=== PATIENT | female | born 1995 | race African-American/Black ===

== ENCOUNTER 2017-03-18 11:43 | Emergency (ER) | payer OTHER ==
[2017-03-18] MEDS ORDERED: NS 1,000 ML IV ONE (12:24)
--- NOTE | 2017-03-18 12:27 | EDPHY ---
H & P Stated Complaint: epigastric pain through to back 20 wks Time Seen by Provider: 03/18/17 12:00 HPI/ROS: CHIEF COMPLAINT: Epigastric pain HISTORY OF PRESENT ILLNESS: Patient is a 21-year-old female who comes to the emergency department complaining of epigastric and right upper quadrant pain that radiates to her back. She has had the symptoms all morning. She vomited once nonbloody. No diarrhea. She states that she has frequent abdominal pain but never this bad. She does not associated with food. 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 She also states that when she was 17 results she was admitted for a bowel obstruction that was fixed with an NG tube. She has had a normal bowel movements today yesterday. REVIEW OF SYSTEMS: Constitutional: denies: chills, fever, recent illness, recent injury EENTM: denies: blurred vision, double vision, nose congestion Respiratory: denies: cough, shortness of breath Cardiac: denies: chest pain, irregular heart rate, lightheadedness, palpitations Gastrointestinal/Abdominal: See HPI Genitourinary: denies: dysuria, frequency, hematuria, pain Musculoskeletal: denies: joint pain, muscle pain Skin: denies: lesions, rash, jaundice, bruising Neurological: denies: headache, numbness, paresthesia, tingling, dizziness, weakness Hematologic/Lymphatic: denies: blood clots, easy bleeding, easy bruising Immunologic/allergic: denies: HIV/AIDS, transplant EXAM: GENERAL: Well-appearing, well-nourished and in no acute distress. HEAD: Atraumatic, normocephalic. EYES: Pupils equal round and reactive to light, extraocular movements intact, sclera anicteric, conjunctiva are normal. ENT: TMs normal, nares patent, oropharynx clear without exudates. Moist mucous membranes. NECK: Normal range of motion, supple without lymphadenopathy or JVD. LUNGS: Breath sounds clear to auscultation bilaterally and equal. No wheezes rales or rhonchi. HEART: Regular rate and rhythm without murmurs, rubs or gallops. ABDOMEN: Right upper quadrant tenderness, BACK: No CVA tenderness, no spinal tenderness, step-offs or deformities EXTREMITIES: Normal range of motion, no pitting or edema. No clubbing or cyanosis. NEUROLOGICAL: Cranial nerves II through XII grossly intact. Normal speech, normal gait. 5/5 strength, normal movement in all extremities, normal sensation PSYCH: Normal mood, normal affect. SKIN: Warm, dry, normal turgor, no visible rashes or lesions. Source: Patient Exam Limitations: No limitations - Personal History LMP (Females 10-55): Current Tetanus/Diphtheria Vaccine: Yes - Medical/Surgical History Hx Asthma: No Hx Chronic Respiratory Disease: No Hx Diabetes: No Hx Cardiac Disease: No Hx Renal Disease: No Hx Cirrhosis: No Hx Alcoholism: No Hx HIV/AIDS: No Hx Splenectomy or Spleen Trauma: No Other PMH: denies - Family History Significant Family History: No pertinent family hx - Social History Smoking Status: Never smoked Alcohol Use: Sober Drug Use: None Constitutional: Initial Vital Signs Temperature (C) 36.6 C 03/18/17 11:47 Heart Rate 82 03/18/17 11:47 Respiratory Rate 16 03/18/17 11:47 Blood Pressure 126/68 H 03/18/17 11:47 O2 Sat (%) 99 03/18/17 11:47 O2 Delivery Mode Room Air Allergies/Adverse Reactions: No Known Allergies Allergy (Unverified 03/18/17 11:47) Home Medications: Medication Instructions Recorded Famotidine [Pepcid 20 MG (OTC)] 20 mg PO BID #30 tab 03/18/17 Vits W-Ca,Fe,FA(<1Mg) 03/18/17 Medical Decision Making - Diagnostics EKG Interpretation: An EKG obtained and was read and documented in trace view. Please see trace view for full reading and report. Sinus rhythm, no acute ischemic changes or signs of right heart strain Imaging: Discussed imaging studies w/ machine scallop cutter Radiologist ED Course/Re-evaluation: Patient's right upper quadrant ultrasound is reassuring. Patient heart rate is 150 and everything appears normal on bedside ultrasound done with agricultural adviser. The patient in dorsal is frequent heartburn. I will start her on an acids. She does not have any significant signs of PE. Heart rate is 80. Oxygen saturation is 100% on room air. No leg pain or swelling, no pop this is, no recent surgery or history of clotting disorder. No pleuritic chest pain. No chest pain at all. Will obtain an EKG to evaluate further. 12:12 p.m. the patient's urinalysis is reassuring. I will start her on GI cocktail and acids and have her follow up with her primary within 2 days. Discussed indications for returning to the emergency department. Differential Diagnosis: Partial list of the Differential diagnosis considered include but were not limited to; gallbladder disease, peptic ulcer disease, GERD and although unlikely based on the history and physical exam, I also considered PE, acute coronary disease, pneumonia, pneumothorax. I discussed these differential diagnoses and the plan with the patient as well as the usual and expected course. The patient understands that the diagnosis is provisional and that in medicine we are not always correct and that further workup is often warranted. Usual and customary warnings were given. All of the patient's questions were answered. The patient was instructed to return to the emergency department should the symptoms at all worsen or return, otherwise to followup with the physician as we discussed. - Data Points Laboratory Results: Laboratory Results 03/18/17 12:20 03/18/17 12:20 Microbiology Results: MICROBIOLOGY 03/18/17 15:20 Urine,Clean Catch Urine Culture - Preliminary Medications Given: Discontinued Medications Al Hydroxide/Mg Hydroxide (Maalox Susp) 30 ml PO ONCE ONE Stop: 03/18/17 14:00 Last Admin: 03/18/17 14:42 Dose: 30 ml Hyoscyamine Sulfate (Levsin, Hyomax-Sl) 0.25 mg PO ONCE ONE Stop: 03/18/17 14:00 Last Admin: 03/18/17 14:42 Dose: 0.25 mg Sodium Chloride (Ns) 1,000 mls @ 0 mls/hr IV ONCE ONE PRN Reason: Wide Open Stop: 03/18/17 12:25 Last Admin: 03/18/17 12:25 Dose: 1,000 mls Lidocaine (Lidocaine 2% Viscous) 15 ml PO ONCE ONE Stop: 03/18/17 14:00 Last Admin: 03/18/17 14:42 Dose: 15 ml Departure - Departure Disposition: Home, Routine, Self-Care Clinical Impression: Epigastric abdominal pain Qualifiers: Weeks of gestation: 20 weeks Qualified Code(s): Z3A.20 - 20 weeks gestation of Condition: Fair Instructions: Epigastric Pain (ED) Referrals: UNK,UNK [Other] - As per Instructions Sandy Sandoval MD [Medical Doctor] - As per Instructions Prescriptions: Famotidine [Pepcid 20 MG (OTC)] 20 mg PO BID #30 tab
[2017-03-18 12:41] LABS: % IMMATURE GRANULYOCYTES 0.4 % (0.0-1.1); ABSOLUTE IMMATURE GRANULOCYTES 0.04 10^3/uL (0.00-0.10); ADD DIFF? NO; ADD MORPH? NO; ADD SCAN? NO; ATYPICAL LYMPHOCYTE FLAG 0 (0-99); FRAGMENT RBC FLAG 0 (0-99); HEMATOCRIT 33.7 % (38.0-47.0); HEMOGLOBIN 11.6 g/dL (12.6-16.3); LEFT SHIFT FLG 10 (0-99); LIPEMIA HEMOLYSIS FLAG 90 (0-99); MEAN CELL HEMOGLOBIN 28.1 pg (27.9-34.1); MEAN CELL HEMOGLOBIN CONCENTR. 34.4 g/dL (32.4-36.7); MEAN CELL VOLUME 81.6 fL (81.5-99.8); MEAN PLATELET VOLUME 10.1 fL (8.7-11.7); PLATELET CLUMPS FLAG 0 (0-99); PLATELET COUNT 272 10^3/uL (150-400); RED BLOOD CELL COUNT 4.13 10^6/uL (4.18-5.33); RED CELL DISTRIBUTION WIDTH 13.4 % (11.5-15.2)
[2017-03-18 12:49] LABS: ALANINE AMINOTRANSFERASE 35 IU/L (9-52); ALBUMIN 3.8 g/dL (3.5-5.0); ALKALINE PHOSPHATASE 48 IU/L (38-126); ANION GAP 10 mEq/L (8-16); ASPARTATE AMINOTRANSFERASE 35 IU/L (14-46); BILIRUBIN,TOTAL 0.6 mg/dL (0.1-1.4); BILIRUBIN-CONJUGATED 0.4 mg/dL (0.0-0.5); BILIRUBIN-UNCONJUGATED 0.2 mg/dL (0.0-1.1); CALCIUM 9.3 mg/dL (8.5-10.4); CARBON DIOXIDE 23 mEq/l (22-31); CHLORIDE 105 mEq/L (97-110); CREATININE 0.6 mg/dL (0.6-1.0); GLOMERULAR FILTRATION RATE > 60; GLUCOSE 81 mg/dL (70-100); POTASSIUM 3.9 mEq/L (3.5-5.2); SODIUM 138 mEq/L (134-144); TOTAL PROTEIN 6.9 g/dL (6.3-8.2)
[2017-03-18] MEDS ORDERED: HYOSCYAMINE SULFATE 0.125 MG TAB PO ONE (13:59)
[2017-03-18] MEDS ORDERED: MAG HYDROX/AL HYDROX/SIMETH 30 ML UDCUP PO ONE (13:59)
[2017-03-18] MEDS ORDERED: LIDOCAINE 2% VISCOUS 15 ML UDCUP PO ONE (13:59)
--- NOTE | 2017-03-18 14:10 | CPEKG ---
Heart Rate: 72 RR Interval: 833 P-R Interval: 160 QRSD Interval: 72 QT Interval: 380 QTC Interval: 416 P [place]: 55 QRS [place]: 40 T Wave [place]: 22 EKG Severity - OTHERWISE NORMAL ECG - EKG Impression: SINUS ARRHYTHMIA, RATE 63-89 Electronically Signed By: Kei Newton 18-Mar-2017 14:13:01
[2017-03-18 15:09] VITALS: BP 129/85; PULSE 74; RESP 18; TEMP 98.4; O2SAT 96
[2017-03-18 15:20] LABS: COLOR YELLOW; LEUKOCYTE ESTERASE,URINE TRACE (NEGATIVE); NITRITE,URINE NEGATIVE (NEGATIVE)
[2017-03-18 15:23] LABS: BACTERIA TRACE /hpf (NONE SEEN); MUCUS 3+ /lpf (NONE-1+)
== END 2017-03-18 15:07 | disposition home or self-care (01) ==
DX: O26.892 Other specified pregnancy related conditions, second trimester (principal); R10.13 Epigastric pain; Z3A.20 20 weeks gestation of pregnancy

== ENCOUNTER 2017-04-14 14:29 | Emergency (ER) | payer OTHER ==
[2017-04-14 14:51] VITALS: RESP 14
[2017-04-14] MEDS ORDERED: NS 1,000 ML IV ONE (15:08)
--- NOTE | 2017-04-14 15:14 | EDPHY ---
H & P Time Seen by Provider: 04/14/17 15:12 HPI/ROS: Chief complaint. Possible seizure HPI. 21-year-old female who is here by EMS after having possible seizure. She is 25 weeks . No care. 1 para 0. She tells me that this afternoon she had some low abdominal discomfort that she felt was pressure or weight. She got nauseated and went to the bathroom to vomit. She then awoke on the floor. A friend (who is not here) said that the patient was shaking. Patient is not hurt. She did not bite her tongue. She has no previous seizure history. She was incontinent of urine ROS Constitutional. no fever/chills, no weakness Eyes. no problems with vision ENT. no sore throat, no nasal drainage Cardiovascular. no chest pain Respiratory. no shortness of breath, no cough Abdominal. Some low abdominal discomfort and vomiting x1 . no problems urinating MS. no calf pain/swelling, no neck/back pain, no joint pain Skin. no rash Lymph. no swollen glands Neuro. Syncope or seizure Past Medical/Surgical History: Healthy Social History: Single, nonsmoker, no alcohol Smoking Status: Never smoked Physical Exam: General Appearance: Alert well-developed female mild distress vital signs are stable. Eyes: Pupils equal and round no pallor or injection. ENT, Mouth: Mucous membranes are moist. Respiratory: There are no retractions, lungs are clear to auscultation. Cardiovascular: Regular rate and rhythm. Gastrointestinal: Abdomen is soft and nontender, gravid abdomen appropriate for 25 weeks gestational Neurological: Awake and alert, sensory and motor exams grossly normal. Skin: Warm and dry, no rashes. Musculoskeletal: Neck is supple nontender. Extremities symmetrical, full range of motion. Psychiatric: Patient is oriented X 3, there is no agitation. Constitutional: Initial Vital Signs Temperature (C) 37.1 C 04/14/17 14:30 Heart Rate 66 04/14/17 14:30 Respiratory Rate 14 04/14/17 14:30 Blood Pressure 134/88 H 04/14/17 14:30 O2 Sat (%) 100 04/14/17 14:30 O2 Delivery Mode Room Air Allergies/Adverse Reactions: No Known Allergies Allergy (Unverified 03/18/17 11:47) Home Medications: Medication Instructions Recorded Famotidine [Pepcid 20 MG (OTC)] 20 mg PO BID #30 tab 03/18/17 Vits W-Ca,Fe,FA(<1Mg) 03/18/17 Medical Decision Making - Diagnostics Imaging Results: Imaging Impressions Head CT 04/14/17 15:27 Impression: No acute intracranial findings. If symptoms persist and clinical suspicion warrants, consider MRI. Findings discussed with Taisha Orozco 04/14/2017 at 18:25. Obstetrics Ultrasound 04/14/17 15:27 Impression: 1. Living single breech intrauterine with size concordant with dates. No acute findings. 2. Slightly limited anatomic survey as above with a left ventricular echogenic intracardiac focus, which is most likely a prominent papillary muscle of doubtful clinical significance, although, there is a weak association with Down syndrome. Consultation with high-risk OB could be performed. 3. Additional findings as above. Findings discussed with TAISHA OROZCO 04/14/2017 at 17:52. Ultrasound of the abdomen shows no acute findings Noncontrast head CT is normal per Dr. Huddleston. Reviewed by me Procedures: IV normal saline. Monitor, seizure precautions heart tone 155 ED Course/Re-evaluation: Serial evaluations patient remains alert conversational without any further seizure activity. Again no one is here who witnessed the episode I consulted and discussed the case with Dr. Ledezma OBGYN who recommended further lab work I consulted and discussed the case with Dr. Mejia, neurology who will follow up with the patient Differential Diagnosis: I think likely the patient had vasovagal episode. She is . She had low abdominal discomfort. There is no obvious evidence of seizures such as tongue biting or trauma. She has no seizure history. She does require follow up with OBGYN and I have discussed this with OBGYN who will follow her in the office - Data Points Laboratory Results: Laboratory Results 04/14/17 14:34 04/14/17 14:34 04/14/17 04/14/17 04/14/17 Unknown Unknown Unknown WBC RBC Hgb Hct MCV MCH MCHC RDW Plt Count MPV Neut % (Auto) Lymph % (Auto) Dent % (Auto) Eos % (Auto) Baso % (Auto) Nucleat RBC Rel Count Absolute Neuts (auto) Absolute Lymphs (auto) Absolute Monos (auto) Absolute Eos (auto) Absolute Basos (auto) Absolute Nucleated RBC Immature Gran % Immature Gran # Sodium Potassium Chloride Carbon Dioxide Anion Gap BUN Creatinine Estimated GFR Glucose Uric Acid 4.2 mg/dL mg/dL (2.5-6.8) Calcium Total Bilirubin 1.0 mg/dL mg/dL (0.1-1.4) Conjugated Bilirubin 0.5 mg/dL mg/dL (0.0-0.5) Unconjugated Bilirubin 0.5 mg/dL mg/dL (0.0-1.1) AST 24 IU/L IU/L (14-46) ALT 18 IU/L IU/L (9-52) Alkaline Phosphatase 68 IU/L IU/L (38-126) Total Protein 7.6 g/dL g/dL (6.3-8.2) Albumin 4.3 g/dL g/dL (3.5-5.0) Urine Color Urine Appearance Urine pH Ur Specific Hulbert Urine Protein Urine Ketones Urine Blood Urine Nitrate Urine Bilirubin Urine Urobilinogen Ur Leukocyte Esterase Urine RBC Urine WBC Ur Epithelial Cells Urine Mucus Urine Glucose RPR Pending Hep Bs Antigen HIV 1&2 Antigen & Ab Pending Rubella IgG Antibody Patient ABO/Rh Antibody Screen 04/14/17 04/14/17 04/14/17 Unknown 18:25 16:50 WBC RBC Hgb Hct MCV MCH MCHC RDW Plt Count MPV Neut % (Auto) Lymph % (Auto) Dent % (Auto) Eos % (Auto) Baso % (Auto) Nucleat RBC Rel Count Absolute Neuts (auto) Absolute Lymphs (auto) Absolute Monos (auto) Absolute Eos (auto) Absolute Basos (auto) Absolute Nucleated RBC Immature Gran % Immature Gran # Sodium Potassium Chloride Carbon Dioxide Anion Gap BUN Creatinine Estimated GFR Glucose Uric Acid Calcium Total Bilirubin Conjugated Bilirubin Unconjugated Bilirubin AST ALT Alkaline Phosphatase Total Protein Albumin Urine Color YELLOW Urine Appearance CLEAR Urine pH 7.0 (5.0-7.5) Ur Specific Hulbert 1.012 (1.002-1.030) Urine Protein NEGATIVE (NEGATIVE) Urine Ketones 2+ H (NEGATIVE) Urine Blood NEGATIVE (NEGATIVE) Urine Nitrate NEGATIVE (NEGATIVE) Urine Bilirubin NEGATIVE (NEGATIVE) Urine Urobilinogen NEGATIVE EU EU (0.2-1.0) Ur Leukocyte Esterase TRACE H (NEGATIVE) Urine RBC NONE SEEN /hpf /hpf (0-3) Urine WBC 3-5 /hpf H /hpf (0-3) Ur Epithelial Cells TRACE /lpf /lpf (NONE-1+) Urine Mucus TRACE /lpf /lpf (NONE-1+) Urine Glucose NEGATIVE (NEGATIVE) RPR Hep Bs Antigen NEGATIVE (NEGATIVE) HIV 1&2 Antigen & Ab Rubella IgG Antibody 139.00 IU/mL IU/mL Patient ABO/Rh AB POSITIVE Antibody Screen NEGATIVE 04/14/17 04/14/17 14:34 14:34 WBC 10.98 10^3/uL H 10^3/uL (3.80-9.50) RBC 4.49 10^6/uL 10^6/uL (4.18-5.33) Hgb 12.4 g/dL L g/dL (12.6-16.3) Hct 36.8 % L % (38.0-47.0) MCV 82.0 fL fL (81.5-99.8) MCH 27.6 pg L pg (27.9-34.1) MCHC 33.7 g/dL g/dL (32.4-36.7) RDW 13.0 % % (11.5-15.2) Plt Count 269 10^3/uL 10^3/uL (150-400) MPV 10.5 fL fL (8.7-11.7) Neut % (Auto) 77.3 % H % (39.3-74.2) Lymph % (Auto) 14.3 % L % (15.0-45.0) Dent % (Auto) 7.1 % % (4.5-13.0) Eos % (Auto) 0.5 % L % (0.6-7.6) Baso % (Auto) 0.3 % % (0.3-1.7) Nucleat RBC Rel Count 0.0 % % (0.0-0.2) Absolute Neuts (auto) 8.48 10^3/uL H 10^3/uL (1.70-6.50) Absolute Lymphs (auto) 1.57 10^3/uL 10^3/uL (1.00-3.00) Absolute Monos (auto) 0.78 10^3/uL 10^3/uL (0.30-0.80) Absolute Eos (auto) 0.06 10^3/uL 10^3/uL (0.03-0.40) Absolute Basos (auto) 0.03 10^3/uL 10^3/uL (0.02-0.10) Absolute Nucleated RBC 0.00 10^3/uL 10^3/uL (0-0.01) Immature Gran % 0.5 % % (0.0-1.1) Immature Gran # 0.06 10^3/uL 10^3/uL (0.00-0.10) Sodium 136 mEq/L mEq/L (134-144) Potassium 4.0 mEq/L mEq/L (3.5-5.2) Chloride 103 mEq/L mEq/L (97-110) Carbon Dioxide 20 mEq/l L mEq/l (22-31) Anion Gap 13 mEq/L mEq/L (8-16) BUN 7 mg/dL mg/dL (7-23) Creatinine 0.6 mg/dL mg/dL (0.6-1.0) Estimated GFR > 60 Glucose 66 mg/dL L mg/dL (70-100) Uric Acid Calcium 9.6 mg/dL mg/dL (8.5-10.4) Total Bilirubin Conjugated Bilirubin Unconjugated Bilirubin AST ALT Alkaline Phosphatase Total Protein Albumin Urine Color Urine Appearance Urine pH Ur Specific H[place]bert Urine Protein Urine Ketones Urine Blood Urine Nitrate Urine Bilirubin Urine Urobilinogen Ur Leukocyte Esterase Urine RBC Urine WBC Ur Epithelial Cells Urine Mucus Urine Glucose RPR Hep Bs Antigen HIV 1&2 Antigen & Ab Rubella IgG Antibody Patient ABO/Rh Antibody Screen Medications Given: Discontinued Medications Sodium Chloride (Ns) 1,000 mls @ 0 mls/hr IV ONCE ONE PRN Reason: Wide Open Stop: 04/14/17 15:09 Last Admin: 04/14/17 15:14 Dose: 1,000 mls Ondansetron HCl (Zofran) 4 mg IVP EDNOW ONE Stop: 04/14/17 16:09 Last Admin: 04/14/17 16:09 Dose: 4 mg Departure - Departure Disposition: Home, Routine, Self-Care Clinical Impression: Vasovagal episode, Second trimester Condition: Good Instructions: Syncope (ED) Additional Instructions: Drink plenty of fluids and stay hydrated. Regular meals. Caution with standing up too fast. Return for another passing out episode or seizure. I will give you the name of both senior training and development rep and Neurology for follow-up. Please call them tomorrow and make follow-up appointments Referrals: NONE *PRIMARY CARE P,. [Primary Care Provider] - As per Instructions Erika Ledezma MD [Medical Doctor] - 5-7 days, call for appt. Scar Mejia MD [Medical Doctor] - 5-7 days, call for appt.
[2017-04-14 15:39] LABS: ANION GAP 13 mEq/L (8-16); CALCIUM 9.6 mg/dL (8.5-10.4); CARBON DIOXIDE 20 mEq/l (22-31); CHLORIDE 103 mEq/L (97-110); CREATININE 0.6 mg/dL (0.6-1.0); GLOMERULAR FILTRATION RATE > 60; GLUCOSE 66 mg/dL (70-100); SODIUM 136 mEq/L (134-144)
[2017-04-14 15:40] LABS: % IMMATURE GRANULYOCYTES 0.5 % (0.0-1.1); ABSOLUTE IMMATURE GRANULOCYTES 0.06 10^3/uL (0.00-0.10); ADD DIFF? NO; ADD MORPH? NO; ADD SCAN? NO; ATYPICAL LYMPHOCYTE FLAG 10 (0-99); FRAGMENT RBC FLAG 30 (0-99); HEMATOCRIT 36.8 % (38.0-47.0); HEMOGLOBIN 12.4 g/dL (12.6-16.3); LEFT SHIFT FLG 10 (0-99); LIPEMIA HEMOLYSIS FLAG 80 (0-99); MEAN CELL HEMOGLOBIN 27.6 pg (27.9-34.1); MEAN CELL HEMOGLOBIN CONCENTR. 33.7 g/dL (32.4-36.7); MEAN PLATELET VOLUME 10.5 fL (8.7-11.7); PLATELET CLUMPS FLAG 0 (0-99); PLATELET COUNT 269 10^3/uL (150-400); RED BLOOD CELL COUNT 4.49 10^6/uL (4.18-5.33)
[2017-04-14] MEDS ORDERED: ONDANSETRON 4 MG/2 ML VIAL ONE (15:59)
[2017-04-14] MEDS ORDERED: ONDANSETRON 4 MG/2 ML VIAL IVP ONE (16:08)
[2017-04-14 17:11] LABS: COLOR YELLOW; LEUKOCYTE ESTERASE,URINE TRACE (NEGATIVE); NITRITE,URINE NEGATIVE (NEGATIVE)
[2017-04-14 17:16] LABS: MUCUS TRACE /lpf (NONE-1+)
[2017-04-14 17:18] LABS: RBC,URINE NONE SEEN /hpf (0-3)
--- NOTE | 2017-04-14 17:23 | CPEKG ---
Heart Rate: 71 RR Interval: 845 P-R Interval: 160 QRSD Interval: 74 QT Interval: 400 QTC Interval: 435 P [place]: 56 QRS [place]: 47 T Wave [place]: 19 EKG Severity - NORMAL ECG - EKG Impression: SINUS RHYTHM Electronically Signed By: Anmol Orozco 14-Apr-2017 21:09:44
[2017-04-14 18:43] LABS: ALBUMIN 4.3 g/dL (3.5-5.0); BILIRUBIN-CONJUGATED 0.5 mg/dL (0.0-0.5); BILIRUBIN-UNCONJUGATED 0.5 mg/dL (0.0-1.1); TOTAL PROTEIN 7.6 g/dL (6.3-8.2); URIC ACID 4.2 mg/dL (2.5-6.8)
[2017-04-14 18:52] VITALS: BP 105/71; PULSE 75; TEMP 97.7; O2SAT 98
== END 2017-04-14 18:50 | disposition home or self-care (01) ==
LOC: EDUNIT#
DX: O99.89 Other specified diseases and conditions complicating pregnancy, childbirth and the puerperium (principal); R55 Syncope and collapse; Z3A.25 25 weeks gestation of pregnancy
CPT/HCPCS: 96374; J2405

== ENCOUNTER → 2017-06-30 | Outpatient (CLI) | payer SELFPAY | LOC: FIMAGING 15:09 | PROVIDERS: ATTEND Physician Assistant | DX: O09.33 Supervision of pregnancy with insufficient antenatal care, third trimester (principal); O35.8XX0 Maternal care for other (suspected) fetal abnormality and damage, not applicable or unspecified; Z3A.35 35 weeks gestation of pregnancy ==

== ENCOUNTER 2018-12-23 07:55 | Emergency (ER) | payer BC, OTHER ==
[2018-12-23] MEDS ORDERED: IPRATROPIUM/ALBUTEROL 3 ML DEYVIAL IH ONE (08:58)
[2018-12-23] MEDS ORDERED: predniSONE 20 MG TAB PO ONE (09:20)
--- NOTE | 2018-12-23 09:26 | EDPHY ---
General - History Smoking Status: Current every day smoker Time Seen by Provider: 12/23/18 09:02 Narrative: CLINICAL IMPRESSION: Bronchitis ASSESSMENT/PLAN: 23-year-old female with no reported medical history presents to the emergency department with 3 days of URI symptoms with cough, chest tightness and wheezing. On arrival patient has expiratory wheezing to auscultation. This improved after a DuoNeb. She was initially mildly tachycardic but without hypoxia or respiratory distress, speaking in full sentences. No underlying asthma or history of cardiopulmonary disease. She was given an initial dose of prednisone. No radiologic evidence of pneumonia or underlying bacterial infection requiring antibiotics. I discharged patient with an albuterol inhaler and spacer, prednisone taper, and encouraged her to follow up with primary care. Warning signs return to ED sooner outlined in person and discharge papers. DIFFERENTIAL DX: Differential includes but not limited to viral URI with cough, bronchitis, reactive airway disease, pneumonia ED PROCEDURES: See lab and/or imaging results below ED COURSE: Patient reassessed after neb treatment. Reports feeling better with less and chest tightness. Chest x-ray shows no evidence of pneumonia CHIEF COMPLAINT: [Cough, chest tightness, wheezing, URI symptoms HPI: 23-year-old female with no reported medical history presents to the emergency department with 3 days of cough, chest tightness, wheezing, associated with upper respiratory symptoms including congestion runny nose and sore throat. Her boyfriend reports subjective fevers. She states that she had asthma long ago but does not take any regular inhalers. She does not have a primary care doctor. She has not tried anything for her symptoms. No history of pneumonia, hospitalizations secondary to asthma or history of intubations secondary to asthma. PAST MEDICAL HISTORY: Reports anemia and past history of asthma See triage summary and nurse notes for addition applicable history Pertinent Past Surgical History: None reported Family History: Noncontributory Social History: Smoker, not established with primary care REVIEW OF SYSTEMS: A full 10 point review of systems was negative except for those mentioned in HPI. PHYSICAL EXAM: General Appearance: Alert, oriented, appropriate, cooperative, NAD, well hydrated, non-toxic appearing, tachycardic, afebrile, no hypoxia. HEENT: TMs are clear bilaterally no perforation or FB, no injection, no evidence of serous or mucopurulent otitis. Oropharynx clear is no erythema or exudates, no tonsillar hypertrophy or asymmetry. Dentition without abnormality. Eyes: PERRLA, no acute vision change, nystagmus, swelling, discharge, pain or photosensitivity. Conjunctiva pink, no pallor or injection Neck: Supple, nontender, no lymphadenopathy, no midline pain, FROM, no meningismus. Respiratory: No retractions, expiratory wheezing and crackles noted to all lung kelley, slightly more so to bibasilar areas Cardiac: Tachycardic with regular rhythm, no murmurs or gallops. Skin: Warm, dry, no rashes, no nodules on palpation. MEDICAL DECISION MAKING: Patient was seen independently. Secondary supervising physician at time of evaluation was: Dr. Landon. Diagnosis: Bronchitis. New, requires workup Summary: See Assessment and Plan for summary of ED visit Clinical lab tests: Not obtained. Independent visualization of images, tracing, or specimens: Yes. Patient Progress: Improved. (Zeus Hutchins) Medical Decision Making: The patient was evaluated and managed by the physician certified surgical assistant. I have reviewed this chart and I agree with the findings and plan of care as documented , as indicated by my signature. I am the secondary supervising physician. ( Sadie Landon) - Objective Vital Signs: Initial Vital Signs Temperature (C) 36.6 C 12/23/18 08:03 Heart Rate 102 H 12/23/18 08:03 Respiratory Rate 18 12/23/18 08:03 Blood Pressure 134/92 H 12/23/18 08:03 O2 Sat (%) 96 12/23/18 08:03 O2 Delivery Mode Room Air Allergies/Adverse Reactions: No Known Allergies Allergy (Unverified 03/18/17 11:47) Home Medications: Medication Instructions Recorded Albuterol 12/23/18 Albuterol Hfa Anes Only [Proair 2 puffs IH QID #1 mdi 12/23/18 Hfa Icu (*)] Benzonatate [Tessalon Pearles (RX)] 100 mg PO TID PRN #20 cap 12/23/18 predniSONE [Prednisone] 40 mg PO DAILY #20 tablet 12/23/18 Medications Given: Discontinued Medications Albuterol/Ipratropium (Duoneb) 3 ml IH EDNOW ONE Stop: 12/23/18 08:59 Last Admin: 12/23/18 09:02 Dose: 3 ml Prednisone (Prednisone) 60 mg PO EDNOW ONE Stop: 12/23/18 09:21 Last Admin: 12/23/18 09:47 Dose: 60 mg Departure - Departure Disposition: Home, Routine, Self-Care Clinical Impression: Bronchitis Condition: Good Instructions: Acute Bronchitis (ED) Additional Instructions: DISCHARGE INSTRUCTIONS FROM YOUR DOCTOR Thank you for visiting our emergency department today. Please keep in mind that discharge from the emergency department does not mean that there is nothing wrong - it simply means that we have not identified an emergency condition that requires further evaluation or treatment in the hospital. You should always plan to follow up with primary care for re-evaluation of your condition in the next 2-3 days. If you have been referred to a specialist, please call as soon as possible (today or tomorrow) to schedule your follow up appointment at the appropriate time. YOUR CHEST X-RAY SHOWS CHANGES CONSISTENT WITH BRONCHITIS. YOU HAVE NO PNEUMONIA. YOU HAVE NO EXAM FINDINGS TO SUGGEST A BACTERIAL UPPER RESPIRATORY INFECTION REQUIRING ANTIBIOTICS. THE VAST MAJORITY OF TIME, BRONCHITIS IS VIRAL BUT CAN CONSIST OF A PERSISTENT COUGH FOR SEVERAL WEEKS. WE GAVE A PRESCRIPTION FOR STEROIDS, AND ALBUTEROL INHALER WITH SPACER AND WE RECOMMEND THAT YOU FOLLOW UP WITH A PRIMARY CARE DOCTOR IN THE NEXT 1-2 DAYS TO RECHECK. I ALSO GAVE A PRESCRIPTION FOR A COUGH TABLET TO USE IF NEEDED. RETURN TO THE EMERGENCY DEPARTMENT FOR WORSENING COUGH, PERSISTENT WHEEZING, DOCUMENTED FEVERS GREATER THAN 100.4, RACING HEART, CHEST PAIN OR BACK PAIN, OR ANY OTHER CONCERNS. PLEASE TRY TO STOP SMOKING THIS WILL EXACERBATE HER SYMPTOMS. People present with illnesses and injuries in different ways, and it is always possible that we have missed something. You may always return for re-evaluation if symptoms worsen or if they are not improving or if you develop new/different symptoms. Again, thank you for choosing our emergency department. We hope that you feel better. Referrals: NONE *PRIMARY CARE P,. [Primary Care Provider] - As per Instructions [facility],. [Clinic] - As per Instructions Prescriptions: Albuterol Hfa Anes Only [Proair Hfa Icu (*)] 2 puffs IH QID #1 mdi Benzonatate [Tessalon Pearles (RX)] 100 mg PO TID PRN #20 cap PRN Reason: Cough, Mild predniSONE [Prednisone] 40 mg PO DAILY #20 tablet
[2018-12-23 09:50] VITALS: BP 108/59
== END 2018-12-23 09:48 | disposition home or self-care (01) ==
DX: J40 Bronchitis, not specified as acute or chronic (principal); F17.200 Nicotine dependence, unspecified, uncomplicated
CPT/HCPCS: J7512

== ENCOUNTER 2018-12-28 07:55 | Inpatient (IN) | payer BC ==
[2018-12-28] MEDS ORDERED: IPRATROPIUM/ALBUTEROL 3 ML DEYVIAL IH ONE (08:16)
[2018-12-28] MEDS ORDERED: ONDANSETRON 4 MG/2 ML VIAL IVP ONE (08:16)
[2018-12-28] MEDS ORDERED: NS 1,000 ML IV ONE ×2 (08:16)
--- NOTE | 2018-12-28 08:20 | EDPHY ---
H & P Time Seen by Provider: 12/28/18 08:07 HPI/ROS: Chief complaint. Cough, vomiting HPI. Patient is 23-year-old female with history of asthma. She was seen in our department December 23 for upper respiratory symptoms that had been going on for several days. She had cough. Chest x-ray showed bronchitis. She was treated with DuoNeb and then prescription for albuterol and prednisone. The diagnosis was bronchitis. She was asked to follow [facility] with [facility] but has not. She has continued to have cough and vomiting after cough. Decreased appetite for the past 4 days. No fever. No shortness of breath. She feels her heart rate is fast. She is also having some diarrhea. Some upper abdominal pain. ROS 10 systems were reviewed and negative with the exception of the elements mentioned in the history of present illness Past Medical/Surgical History: Asthma, gastroparesis Social History: Single, daily smoker, no alcohol Smoking Status: Current every day smoker Physical Exam: General Appearance: Alert well-developed female mild distress vital signs show heart rate 127. Afebrile. Eyes: Pupils equal and round no pallor or injection. ENT, pharynx without injection. Mucous membranes are dry Respiratory: No retractions. Mild inspiratory expiratory wheezing Cardiovascular: Regular rate and rhythm with tachycardia Gastrointestinal: Abdomen is soft with mild upper abdominal pain both right upper and left upper quadrants Neurological: Awake and alert, sensory and motor exams grossly normal. Skin: Warm and dry, no rashes. Musculoskeletal: Neck is supple nontender. Extremities symmetrical, full range of motion. Psychiatric: Patient is oriented X 3, there is no agitation. Constitutional: Initial Vital Signs Temperature (C) 36.7 C 12/28/18 07:59 Heart Rate 127 H 12/28/18 07:59 Respiratory Rate 22 H 12/28/18 07:59 Blood Pressure 107/81 H 12/28/18 07:59 O2 Sat (%) 98 12/28/18 07:59 O2 Delivery Mode Room Air Allergies/Adverse Reactions: No Known Allergies Allergy (Verified 12/28/18 07:57) Home Medications: Medication Instructions Recorded Albuterol 12/23/18 Albuterol Hfa Anes Only [Proair 2 puffs IH QID #1 mdi 12/23/18 Hfa Icu (*)] Benzonatate [Tessalon Pearles (RX)] 100 mg PO TID PRN #20 cap 12/23/18 predniSONE [Prednisone] 40 mg PO DAILY #20 tablet 12/23/18 Medical Decision Making - Diagnostics Imaging Results: Imaging Impressions Chest X-Ray 12/28/18 09:24 Impression: Patchy right lower lobe segmental infiltrate. Chest x-ray reviewed by me shows a right lower lobe pneumonia Procedures: IV normal saline with initial target 2 L. Zofran IV for nausea. Susan roe ED Course/Re-evaluation: Patient screens for sepsis. I do not think this represents sepsis. I think her elevated heart rate is from dehydration Patient is re-evaluated at 9:20 a.m.. She now has a fever 39.4 degrees. We will draw lactate and 1st set of blood cultures and get a chest x-ray After 2 L of fluid patient continues to be tachycardic at about 110. Tylenol for fever. IV Rocephin. Patient and I discussed imaging and lab results. We discussed treatment plan including recommendation for admission. She expresses understanding and agreement I consulted discussed the case with Dr. Goodman, hospitalist, who agrees to the admission Differential Diagnosis: I considered sepsis, pneumonia, bronchitis - Data Points Laboratory Results: Laboratory Results 12/28/18 08:15 12/28/18 08:15 12/28/18 12/28/18 12/28/18 09:30 08:15 08:15 WBC RBC Hgb Hct MCV MCH MCHC RDW Plt Count MPV Neut % (Auto) Lymph % (Auto) [place] % (Auto) Eos % (Auto) Baso % (Auto) Nucleat RBC Rel Count Absolute Neuts (auto) Absolute Lymphs (auto) Absolute Monos (auto) Absolute Eos (auto) Absolute Basos (auto) Absolute Nucleated RBC Immature Gran % Seg Neutrophils % Band Neutrophils % Lymphocytes % Monocytes % Eosinophils % Basophils % Metamyelocytes % Myelocytes % Promyelocytes % Blast Cells % Immature Gran # Absolute Seg Neuts Absolute Band Neuts Absolute Lymphocytes Absolute Monocytes Absolute Eosinophils Absolute Basophils Absolute Metamyelocyte Absolute Myelocytes Absolute Promyelocytes Absolute Plasma Cells Nucleated RBCs Absolute Blast Cells Plasma Cells % Platelet Estimate Elliptocytes VBG Lactic Acid 1.5 mmol/L mmol/L (0.7-2.1) Sodium 137 mEq/L mEq/L (135-145) Potassium 3.0 mEq/L L mEq/L (3.5-5.2) Chloride 99 mEq/L mEq/L (97-110) Carbon Dioxide 22 mEq/l mEq/l (22-31) Anion Gap 16 mEq/L H mEq/L (6-14) BUN 12 mg/dL mg/dL (7-23) Creatinine 0.9 mg/dL mg/dL (0.6-1.0) Estimated GFR > 60 Glucose 110 mg/dL H mg/dL (70-100) Calcium 9.1 mg/dL mg/dL (8.5-10.4) Lipase 95 IU/L IU/L (23-300) Beta HCG, Qual NEGATIVE 12/28/18 08:15 WBC 15.03 10^3/uL H 10^3/uL (3.80-9.50) RBC 5.12 10^6/uL 10^6/uL (4.18-5.33) Hgb 12.8 g/dL g/dL (12.6-16.3) Hct 38.5 % % (38.0-47.0) MCV 75.2 fL L fL (81.5-99.8) MCH 25.0 pg L pg (27.9-34.1) MCHC 33.2 g/dL g/dL (32.4-36.7) RDW 13.8 % % (11.5-15.2) Plt Count 308 10^3/uL 10^3/uL (150-400) MPV 11.2 fL fL (8.7-11.7) Neut % (Auto) Not Reported Lymph % (Auto) Not Reported [place] % (Auto) Not Reported Eos % (Auto) Not Reported Baso % (Auto) Not Reported Nucleat RBC Rel Count Not Reported Absolute Neuts (auto) Not Reported Absolute Lymphs (auto) Not Reported Absolute Monos (auto) Not Reported Absolute Eos (auto) Not Reported Absolute Basos (auto) Not Reported Absolute Nucleated RBC Not Reported Immature Gran % Not Reported Seg Neutrophils % 79.0 % % Band Neutrophils % 6.0 % % Lymphocytes % 10.0 % % Monocytes % 5.0 % % Eosinophils % 0.0 % % Basophils % 0.0 % % Metamyelocytes % 0.0 % % Myelocytes % 0.0 % % Promyelocytes % 0.0 % % Blast Cells % 0.0 % % Immature Gran # Not Reported Absolute Seg Neuts 11.87 10^3/uL H 10^3/uL (1.70-6.50) Absolute Band Neuts 0.90 10^3/uL H 10^3/uL (0.00-0.70) Absolute Lymphocytes 1.50 10^3/uL 10^3/uL (1.00-3.00) Absolute Monocytes 0.75 10^3/uL 10^3/uL (0.30-0.80) Absolute Eosinophils 0.00 10^3/uL L 10^3/uL (0.03-0.40) Absolute Basophils 0.00 10^3/uL L 10^3/uL (0.02-0.10) Absolute Metamyelocyte 0.00 10^3/mL 10^3/mL (0.00-0.00) Absolute Myelocytes 0.00 10^3/mL 10^3/mL (0.00-0.00) Absolute Promyelocytes 0.00 10^3/uL 10^3/uL (0.00-0.00) Absolute Plasma Cells 0.00 10^3/uL 10^3/uL (0.00-0.00) Nucleated RBCs 0 /100 WBC /100 WBC (0-0) Absolute Blast Cells 0.00 10^3/uL 10^3/uL (0.00-0.00) Plasma Cells % 0.0 % % Platelet Estimate ADEQUATE (ADEQ) Elliptocytes 1+ H VBG Lactic Acid Sodium Potassium Chloride Carbon Dioxide Anion Gap BUN Creatinine Estimated GFR Glucose Calcium Lipase Beta HCG, Qual Medications Given: Discontinued Medications Acetaminophen (Tylenol) 1,000 mg PO EDNOW ONE Stop: 12/28/18 09:25 Last Admin: 12/28/18 09:42 Dose: 1,000 mg Al Hydroxide/Mg Hydroxide (Maalox Susp) 30 ml PO EDNOW ONE Stop: 12/28/18 10:01 Last Admin: 12/28/18 10:03 Dose: 30 ml Albuterol/Ipratropium (Duoneb) 3 ml IH EDNOW ONE Stop: 12/28/18 08:17 Last Admin: 12/28/18 08:23 Dose: 3 ml Sodium Chloride (Ns) 1,000 mls @ 0 mls/hr IV EDNOW ONE; Wide Open PRN Reason: Protocol Stop: 12/28/18 08:17 Last Admin: 12/28/18 08:23 Dose: 1,000 mls Sodium Chloride (Ns) 1,000 mls @ 0 mls/hr IV EDNOW ONE; Wide Open PRN Reason: Protocol Stop: 12/28/18 08:17 Last Admin: 12/28/18 08:23 Dose: 1,000 mls Ceftriaxone Sodium/Dextrose (Rocephin 1 Gm (Premix)) 50 mls @ 100 mls/hr IV EDNOW ONE PRN Reason: Protocol Stop: 12/28/18 10:36 Last Admin: 12/28/18 10:13 Dose: 50 mls Lidocaine (Lidocaine 2% Viscous) 5 ml PO EDNOW ONE Stop: 12/28/18 10:01 Last Admin: 12/28/18 10:03 Dose: 5 ml Lorazepam (Ativan Injection) 0.5 mg IVP EDNOW ONE Stop: 12/28/18 10:09 Last Admin: 12/28/18 10:11 Dose: 0.5 mg Ondansetron HCl (Zofran) 4 mg IVP EDNOW ONE Stop: 12/28/18 08:17 Last Admin: 12/28/18 08:23 Dose: 4 mg Departure - Departure Disposition: [facility] Inpatient Acute Clinical Impression: Pneumonia Qualifiers: Pneumonia type: due to unspecified organism Laterality: right Lung location: lower lobe of lung Qualified Code(s): J18.1 - Lobar pneumonia, unspecified organism Condition: Good
[2018-12-28 08:24] LABS: PLATELET COUNT 308 10^3/uL (150-400)
[2018-12-28] MEDS ORDERED: ACETAMINOPHEN 500 MG TAB PO ONE (09:24)
[2018-12-28] MEDS ORDERED: MAG HYDROX/AL HYDROX/SIMETH 30 ML UDCUP PO ONE (10:00)
[2018-12-28] MEDS ORDERED: LIDOCAINE 2% VISCOUS 15 ML UDCUP PO ONE (10:00)
[2018-12-28] MEDS ORDERED: LORazepam 2 MG/ML INJ IVP ONE (10:08)
[2018-12-28] MEDS ORDERED: ONDANSETRON DISINTEGRATING 4 MG TAB PO PRN (11:02)
[2018-12-28] MEDS ORDERED: ONDANSETRON 4 MG/2 ML VIAL IVP PRN (11:02)
[2018-12-28] MEDS ORDERED: IBUPROFEN 200 MG TAB PO PRN (11:02)
[2018-12-28] MEDS ORDERED: IPRATROPIUM/ALBUTEROL 3 ML DEYVIAL IH PRN (12:33)
--- NOTE | 2018-12-28 12:37 | PDGENHP ---
History and Physical - Chief Complaint cough - History of Present Illness 23yo F with history of mild asthma presents with over 1 week of worsening productive cough, shortness of breath, and fevers. She is homeless and has been living in a fdc with numerous sick contacts. Initially came to ED on 12/23 and was diagnosed with bronchitis and given prescription for prednisone, which she has not taken, and albuterol. Albuterol inhaler has not helped her symptoms. Cough productive of green sputum. Subjective fevers and chills. She has vomited several times after coughing fits and developed some loose stools yesterday. Hasn't eaten very much. Smokes 1/2 pack of cigarettes/day. She also reports a mid-line chest and upper abdominal discomfort/pressure associated with her coughing. In the ED, she was noted to be febrile, tachycardic with a leukocytosis. CXR shows a RLL infiltrate. She was given IV ceftriaxone and admitted for further care. Case discussed with ED physician Anmol Orozco. History Information - Allergies/Home Medication List Allergies/Adverse Reactions: No Known Allergies Allergy (Verified 12/28/18 07:57) Home Medications: Albuterol 12/23/18 [Last Taken Unknown] I have personally reviewed and updated: family history, medical history, social history, surgical history - Past Medical History Additional medical history: mild asthma (never been hospitalized for this, doesn 't use inhalers) - Surgical History Reports: no pertinent surgical hx - Family History Positive for: non-pertinent - Social History Smoking Status: Current every day smoker Alcohol Use: None Drug Use: None Additional social history: homeless, boyfriend at bedside Review of Systems Review of Systems: ROS: 10pt was reviewed & negative except for what was stated in HPI & below Physical Exam Physical Exam: Temp Pulse Resp BP Pulse Ox 37.3 C 79 18 124/84 H 98 12/28/18 11:25 12/28/18 11:25 12/28/18 11:25 12/28/18 11:25 12/28/18 11:25 Constitutional: no apparent distress, appears nourished, not in pain Eyes: PERRL, anicteric sclera, EOMI Ears, Nose, Mouth, Throat: moist mucous membranes, hearing normal, ears appear normal, no oral mucosal ulcers Cardiovascular: no murmur, rub, or gallop, tachycardia, No edema Respiratory: no respiratory distress, no rales or rhonchi, reduced air movement (right base), No expiratory wheeze Gastrointestinal: normoactive bowel sounds, soft, non-tender abdomen, no palpable masses Genitourinary: no bladder fullness, no bladder tenderness Skin: warm, normal color, no rashes or abrasions, no fluctuance, no induration, No mottled Musculoskeletal: full muscle strength, no muscle tenderness, normal joint ROM, no joint effusions Neurologic: AAOx3 Psychiatric: interacting appropriately, not anxious, not encephalopathic, thought process linear Lab Data & Imaging Review 12/28/18 08:15 12/28/18 08:15 WBC 15.03 10^3/uL (3.80-9.50) H 12/28/18 08:15 RBC 5.12 10^6/uL (4.18-5.33) 12/28/18 08:15 Hgb 12.8 g/dL (12.6-16.3) 12/28/18 08:15 Hct 38.5 % (38.0-47.0) 12/28/18 08:15 MCV 75.2 fL (81.5-99.8) L 12/28/18 08:15 MCH 25.0 pg (27.9-34.1) L 12/28/18 08:15 MCHC 33.2 g/dL (32.4-36.7) 12/28/18 08:15 RDW 13.8 % (11.5-15.2) 12/28/18 08:15 Plt Count 308 10^3/uL (150-400) 12/28/18 08:15 MPV 11.2 fL (8.7-11.7) 12/28/18 08:15 Neut % (Auto) Not Reported 12/28/18 08:15 Lymph % (Auto) Not Reported 12/28/18 08:15 [place] % (Auto) Not Reported 12/28/18 08:15 Eos % (Auto) Not Reported 12/28/18 08:15 Baso % (Auto) Not Reported 12/28/18 08:15 Nucleat RBC Rel Count Not Reported 12/28/18 08:15 Absolute Neuts (auto) Not Reported 12/28/18 08:15 Absolute Lymphs (auto) Not Reported 12/28/18 08:15 Absolute Monos (auto) Not Reported 12/28/18 08:15 Absolute Eos (auto) Not Reported 12/28/18 08:15 Absolute Basos (auto) Not Reported 12/28/18 08:15 Absolute Nucleated RBC Not Reported 12/28/18 08:15 Immature Gran % Not Reported 12/28/18 08:15 Seg Neutrophils % 79.0 % 12/28/18 08:15 Band Neutrophils % 6.0 % 12/28/18 08:15 Lymphocytes % 10.0 % 12/28/18 08:15 Monocytes % 5.0 % 12/28/18 08:15 Eosinophils % 0.0 % 12/28/18 08:15 Basophils % 0.0 % 12/28/18 08:15 Metamyelocytes % 0.0 % 12/28/18 08:15 Myelocytes % 0.0 % 12/28/18 08:15 Promyelocytes % 0.0 % 12/28/18 08:15 Blast Cells % 0.0 % 12/28/18 08:15 Immature Gran # Not Reported 12/28/18 08:15 Absolute Seg Neuts 11.87 10^3/uL (1.70-6.50) H 12/28/18 08:15 Absolute Band Neuts 0.90 10^3/uL (0.00-0.70) H 12/28/18 08:15 Absolute Lymphocytes 1.50 10^3/uL (1.00-3.00) 12/28/18 08:15 Absolute Monocytes 0.75 10^3/uL (0.30-0.80) 12/28/18 08:15 Absolute Eosinophils 0.00 10^3/uL (0.03-0.40) L 12/28/18 08:15 Absolute Basophils 0.00 10^3/uL (0.02-0.10) L 12/28/18 08:15 Absolute Metamyelocyte 0.00 10^3/mL (0.00-0.00) 12/28/18 08:15 Absolute Myelocytes 0.00 10^3/mL (0.00-0.00) 12/28/18 08:15 Absolute Promyelocytes 0.00 10^3/uL (0.00-0.00) 12/28/18 08:15 Absolute Plasma Cells 0.00 10^3/uL (0.00-0.00) 12/28/18 08:15 Nucleated RBCs 0 /100 WBC (0-0) 12/28/18 08:15 Absolute Blast Cells 0.00 10^3/uL (0.00-0.00) 12/28/18 08:15 Plasma Cells % 0.0 % 12/28/18 08:15 Platelet Estimate ADEQUATE (ADEQ) 12/28/18 08:15 Elliptocytes 1+ H 12/28/18 08:15 VBG Lactic Acid 1.5 mmol/L (0.7-2.1) 12/28/18 09:30 Sodium 137 mEq/L (135-145) 12/28/18 08:15 Potassium 3.0 mEq/L (3.5-5.2) L 12/28/18 08:15 Chloride 99 mEq/L (97-110) 12/28/18 08:15 Carbon Dioxide 22 mEq/l (22-31) 12/28/18 08:15 Anion Gap 16 mEq/L (6-14) H 12/28/18 08:15 BUN 12 mg/dL (7-23) 12/28/18 08:15 Creatinine 0.9 mg/dL (0.6-1.0) 12/28/18 08:15 Estimated GFR > 60 12/28/18 08:15 Glucose 110 mg/dL (70-100) H 12/28/18 08:15 Calcium 9.1 mg/dL (8.5-10.4) 12/28/18 08:15 Lipase 95 IU/L (23-300) 12/28/18 08:15 Beta HCG, Qual NEGATIVE 12/28/18 08:15 Visualized and Interpreted Chest x-ray results: Yes Visualized and Interpreted imaging results: Yes Interpretation: CXR: subtle right lower lobe infiltrate, no effusions, normal heart size Assessment & Plan Assessment: 23yo F with history of mild asthma presents with over 1 week of worsening productive cough, shortness of breath, and fevers with infiltrate on chest imaging. Plan: 1. Right lower lobe pneumonia: Suspect viral vs community-acquired bacterial infection. - Respiratory viral PCR - Ceftriaxone 1g qd, azithromycin 500mg qd - Duonebs prn 2. Sepsis: Fever, leukocytosis, tachycardia with pulmonary source. BP ok. - Blood cultures pending 3. Chest pressure: Likely related to coughing. No/minimal risk factors for ACS. - Check d-dimer 4. Post-tussive emesis - Tessalon pearls prn 5. H/o asthma: Does not appear to be acutely exacerbated. - Management as above 6. Tobacco use - Strongly recommended cessation 7. Hypokalemia: Related to poor PO - Repleting VTE ppx: LMWH Code: full Diet: regular Dispo: Admit under observation
[2018-12-28] MEDS ORDERED: POTASSIUM CL 20 MEQ TAB PO ONE (12:43)
[2018-12-28] MEDS: AZITHROMYCIN IV 500 MG in NS 250 ML IV SCH (13:54)
[2018-12-28] MEDS ORDERED: HYDROmorphONE/DILAUDID 1 MG/ML INJ IVP PRN (15:48)
[2018-12-28] MEDS ORDERED: IOHEXOL 350mgI/ML (OMNIPAQUE) 150 ML BTL IV ONE (15:51)
[2018-12-28] MEDS: ACETAMINOPHEN 325 MG TAB PO PRN (21:43)
[2018-12-28] MEDS: guaiFENesin 600 MG TAB.ER PO SCH (21:43)
[2018-12-28] MEDS: BENZONATATE 100 MG CAP PO PRN (23:00)
[2018-12-28] MEDS ORDERED: NS 1,000 ML IV SCH (23:15)
[2018-12-29] MEDS: ACETAMINOPHEN 325 MG TAB PO PRN ×2 (08:21→15:43)
--- NOTE | 2018-12-29 09:39 | HOSPPROG ---
Hospitalist Progress Note Assessment/Plan: 23yo F with history of mild asthma presents with over 1 week of worsening productive cough, shortness of breath, and fevers with infiltrates on chest imaging. 1. Bilateral lower lobe pneumonia: Adenovirus with suspected super-imposed bacterial infection. Treating for CAP. - Continue ceftriaxone 1g qd, azithromycin 500mg qd 2. Acute asthma exacerbation: Due to above. Mild. Still wheezing. - Schedule duonebs 3. Sepsis: Fever, leukocytosis, tachycardia with pulmonary source. BP ok. - Blood cultures negative so far 4. Chest/upper abdominal pressure: CT negative for PE. Likely related to coughing 5. Post-tussive emesis - Tessalon pearls prn 6. Tobacco use - Strongly recommended cessation 7. Hypokalemia: Related to poor PO. Now replete. 8. Weight loss: Reports 20-25#. - Check TSH VTE ppx: LMWH Code: full Diet: regular Dispo: Switch to inpatient, still fevering and requiring IV antibiotics. Possible dc in 1-2 days. Subjective: Still feeling crummy. Fevering overnight. Coughed up some greenish sputum. Breathing still somewhat labored but O2 levels ok. Objective: Vital Signs Temp Pulse Resp BP Pulse Ox 38.4 C H 99 16 120/85 H 99 12/29/18 07:33 12/29/18 07:33 12/29/18 07:33 12/29/18 07:33 12/29/18 07:33 Microbiology 12/28/18 13:50 Respiratory Panel (PCR) - Final Nasal, Sinus - Swab Adenovirus Laboratory Results 12/29/18 04:22 12/29/18 04:22 12/28/18 12/29/18 12/30/18 05:59 05:59 05:59 Intake Total 2500 Balance 2500 - Physical Exam Constitutional: no apparent distress, appears nourished, not in pain Eyes: PERRL, anicteric sclera, EOMI Ears, Nose, Mouth, Throat: moist mucous membranes, hearing normal, ears appear normal, no oral mucosal ulcers Cardiovascular: no murmur, rub, or gallop, tachycardia, No edema Respiratory: no respiratory distress, reduced air movement, expiratory wheeze, rhonchi Gastrointestinal: normoactive bowel sounds, soft, non-tender abdomen, no palpable masses Genitourinary: no bladder fullness, no bladder tenderness, no renal bruits Skin: no rashes or abrasions, no fluctuance, no induration Musculoskeletal: full muscle strength, no muscle tenderness, normal joint ROM Neurologic: AAOx3, sensation intact bilaterally Psychiatric: interacting appropriately, not anxious, not encephalopathic, thought process linear ICD10 Worksheet Patient Problems: Problems Problem Status Onset Pneumonia Acute Epigastric abdominal pain Acute
[2018-12-29] MEDS: IPRATROPIUM/ALBUTEROL 3 ML DEYVIAL IH SCH ×2 (09:44→16:22)
[2018-12-29] MEDS: guaiFENesin 600 MG TAB.ER PO SCH ×2 (09:50→21:00)
[2018-12-29] MEDS: ENOXAPARIN 40 MG/0.4 ML SYR SC SCH (09:55)
[2018-12-29] MEDS: AZITHROMYCIN IV 500 MG in NS 250 ML IV SCH (10:33)
--- NOTE | 2018-12-29 10:56 | ASMTCMCOM ---
CM Note CM Note Notes: Chart reviewed for discharge planning purposes. 23 year old female with hx of mild asthma admitted via ED for worsening fever and couch. Diagnosis of bilateral pneumonia Patient is homeless and has been staying at assisted. CM to follow for needs, no anticipated needs at this time. Plan: Likely dc back to street. Date Signed: 12/29/2018 10:54 AM Electronically Signed By:Amelia Ware RN
--- NOTE | 2018-12-29 12:20 | ASMTCMCOM ---
CM Note CM Note Notes: Met with patient to discuss possible discharge planning needs. Patient is well known to the [facility] program and states she also utilizes the [facility]. When asked if patient belonged to the [facility] or the [facility], patient stated [facility]. Patient states she and partner are working on their 'jobs' and hopes to continue on that path when she recovers. Patient utilizes the bus system in town as her line of transportation. Do not anticipate there being any needs upon discharge. Also discussed case with . Plan: Likely independent [facility] Date Signed: 12/29/2018 12:19 PM Electronically Signed By:Linda Tate RN
--- NOTE | 2018-12-29 12:47 | PDMN ---
Medical Necessity Medical necessity: MCG: M282 cPNA A-2 days: M60 asthma: pt present with worsening cough, SOB, fever X 1 week, wheezing, sepsis ( fever( 39.2) , leukocytosis( 15.03) , tachycardia( 127) with pulm. source- bilat LL pna, R> L - seen on CT. status changed to INPT 12/29 for ongoing med nec care- further monitoring, and tx > 2 MN needed. IV Rocephin, IV azithromycin, IV Zofran, IV dilaudid, nebs. pt is homeless.
[2018-12-29] MEDS: BENZONATATE 100 MG CAP PO PRN (15:44)
[2018-12-29] MEDS ORDERED: NICOTINE POLACRILEX 2 MG GUM B PRN (15:52)
[2018-12-29] MEDS ORDERED: HYDROmorphONE/DILAUDID 2 MG/ML INJ IVP PRN (20:30)
[2018-12-30] MEDS: ACETAMINOPHEN 325 MG TAB PO PRN (00:30)
[2018-12-30] MEDS: IPRATROPIUM/ALBUTEROL 3 ML DEYVIAL IH SCH ×3 (05:11→08:53)
[2018-12-30] MEDS: ENOXAPARIN 40 MG/0.4 ML SYR SC SCH (09:41)
[2018-12-30] MEDS: guaiFENesin 600 MG TAB.ER PO SCH (09:42)
[2018-12-30] MEDS: AZITHROMYCIN IV 500 MG in NS 250 ML IV SCH (09:43)
[2018-12-30] MEDS: oxyCODONE IR 5 MG TAB PO PRN ×2 (09:51→14:42)
[2018-12-30 12:05] VITALS: BP 114/79
--- NOTE | 2018-12-30 14:45 | PDDCSUM ---
Discharge Summary Discharge Summary: Date of Admission: 12/28/2018 Date of Discharge: 12/30/2018 Studies: 1. CXR 2. CTA chest Discharge Diagnoses: 1. Community acquired pneumonia, superimposed on 2. Adenovirus bronchitis, causing 3. Acute asthma exacerbation 4. Sepsis, present on admission now resolved 5. Tobacco use 6. ? h/o gastroparesis Brief Hospital Course: 23yo F with history of mild asthma presented with over 1 week of worsening productive cough, shortness of breath, fevers, and post-tussive emesis. CXR showed pneumonia. She also had chest pressure and was tachycardic with an elevated d-dimer so CTA of chest was obtained. This was negative for PE but did show bilateral lower lobe pneumonia. Respiratory viral panel was + for adenovirus. She was also treated for community acquired pneumonia and discharged to complete a course of antibiotics. Her sepsis physiology had resolved. I strongly advised smoking cessation and establishment with a PCP. Medications: Please refer to EMR for complete list. She was given prescriptions for the followin. Cefdinir 300mg BID #6, 0 refills 2. Azithromycin 500mg QD #3, 0 refills 3. Tessalon pearls 4. Albuterol inhaler refill Follow Up Plan: 1. Advised to establish with PCP 2. Smoking cessation Physical Exam: Vitals reviewed, afebrile. Alert and oriented, mildly tachycardic without m/r/g, lungs essentially clear with no more wheezes, abdomen soft, no leg edema or rashes.
== END 2018-12-30 15:58 | disposition home or self-care (01) | DRG 871 ==
LOC: INTOOBSV 10:30 → F1N 11:16 → OBSVTOIN 12-29 09:38
PROVIDERS: ADMIT Internal Medicine; ATTEND Internal Medicine
DX: A41.9 Sepsis, unspecified organism (principal); J18.8 Other pneumonia, unspecified organism; J45.901 Unspecified asthma with (acute) exacerbation; J20.8 Acute bronchitis due to other specified organisms; B97.0 Adenovirus as the cause of diseases classified elsewhere; E87.6 Hypokalemia; Z72.0 Tobacco use; Z59.0 Homelessness
CPT/HCPCS: 96365; G0378; J0456; J0696; J1170; J1650; J2060; J2405; Q9967

== ENCOUNTER 2019-01-07 07:58 | Inpatient (IN) | payer BC ==
[2019-01-07] MEDS ORDERED: NS 1,000 ML IV ONE ×2 (08:33→10:00)
[2019-01-07] MEDS ORDERED: ONDANSETRON 4 MG/2 ML VIAL IVP ONE (08:33)
[2019-01-07 08:44] LABS: PLATELET COUNT 532 10^3/uL (150-400)
--- NOTE | 2019-01-07 08:51 | EDPHY ---
H & P Stated Complaint: n/v, abd pain Time Seen by Provider: 01/07/19 08:45 HPI/ROS: HPI: This is a 23-year-old female who presents with Chief Complaint: n/v, abd pain Location: Epigastric and right lower quadrant Quality: Sharp Pain Duration: Since around 6:00 a.m. This morning approximately 3 hr prior to arrival Signs and Symptoms: no fever, + nausea, + vomiting, no hematemesis, no blood in stool, no abdominal bloating, no diarrhea, no back pain, no urinary symptoms, no vaginal bleeding/discharge, no indigestion, no chest pain, no shortness of breath Timing: Acute, intermittent Severity: 7/10 Context: Patient is homeless has a history of gastroparesis, asthma and recent pneumonia with admission to the hospital 12/28/2018-12/30/2018 and discharged on cefdinir x6 days in azithromycin x3 days but patient did not fill as she reports she cannot take the medication with food. She reports that since discharge she has had this dull aching discomfort in her epigastric area. She woke up this morning with right lower quadrant pain and epigastric sharp intermittent pain that is 7/10. She reports she vomited x1. She denies any fever, dysuria, vaginal bleeding, vaginal discharge, cough, shortness of breath , chest pain, diarrhea. Patient reports that she has chills. Modifying Factors: None Comment: ROS: A comprehensive 10 system review of systems is otherwise negative aside from elements mentioned in the history of present illness. MEDICAL/SURGICAL/SOCIAL HISTORY: Medical history: Asthma. Gastroparesis., uterine infection, PNA Surgical history: Denies Social history: Homeless. Current every day smoker. Family history noncontributory. CONSTITUTIONAL: Nontoxic-appearing young adult black female, significant other at her bedside, awake and alert, no obvious distress HEENT: Atraumatic and normocephalic, PERRL, EOMI. Nares patent; no rhinorrhea; no nasal mucosal edema. Tympanic membranes clear. Oropharynx clear, no exudate and moist pink mucosa. Airway patent. No lymphadenopathy. No meningismus. Cardiovascular: Normal S1/S2, regular rate, regular rhythm, without murmur rub or gallop. PULMONARY/CHEST: Symmetrical and nontender. Clear to auscultation bilaterally. Good air movement. No accessory muscle usage. ABDOMEN: Soft, nondistended, moderate right lower quadrant tenderness, moderate epigastric tenderness, no rebound, no guarding, no peritoneal signs, no masses or organomegaly. No CVAT. Hypoactive bowel sounds heard x4 quadrants. EXTREMITIES: 2/2 pulses, strength 5/5, no deformities, no clubbing, no cyanosis or edema. NEUROLOGICAL: no focal neuro deficits. GCS 15. SKIN: Warm and dry, no erythema. no rash. Good capillary refill. Source: Patient, RN/MD, Old records Exam Limitations: No limitations - Personal History Current Tetanus/Diphtheria Vaccine: Yes Current Tetanus Diphtheria and Acellular Pertussis (TDAP): Yes - Medical/Surgical History Hx Asthma: Yes Hx Chronic Respiratory Disease: No Hx Diabetes: No Hx Cardiac Disease: No Hx Renal Disease: No Hx Cirrhosis: No Hx Alcoholism: No Hx HIV/AIDS: No Hx Splenectomy or Spleen Trauma: No Other PMH: Asthma. Gastroparesis., uterine infection, PNA - Social History Smoking Status: Current every day smoker Constitutional: Initial Vital Signs Temperature (C) 36.4 C 01/07/19 08:13 Heart Rate 82 01/07/19 08:13 Respiratory Rate 16 01/07/19 08:13 Blood Pressure 141/115 H 01/07/19 08:13 O2 Sat (%) 98 01/07/19 08:13 O2 Delivery Mode Room Air Allergies/Adverse Reactions: No Known Allergies Allergy (Verified 01/07/19 08:12) Home Medications: Medication Instructions Recorded Albuterol Hfa Anes Only [Proair 2 puffs IH QID PRN #1 mdi 12/30/18 Hfa Icu (*)] Medical Decision Making - Diagnostics Imaging Results: Imaging Impressions Chest X-Ray 01/07/19 08:52 Impression: 1. Clear lungs. No pneumonia. 2. Mildly dilated loops of bowel in the upper abdomen are incompletely evaluated. No pneumoperitoneum. ED Course/Re-evaluation: Vital signs reviewed and show elevated blood pressure upon arrival. IV access, laboratory studies, chest x-ray, CT abdomen and pelvis scan ordered Given 1 L normal saline, IV Zofran 4 mg, IV Protonix 40 mg, IV Toradol 30 mg, IV Dilaudid 1 mg 0935: Labs reviewed. WBC 10 K with left shift, hemoglobin 12 with macrocytosis ,. No signs of ALEXA/elevated LFTs/electrolyte imbalance/pancreatitis/. 0955: Chest x-ray my read via PACs shows no opacity, no effusion. 1000: Called by Dr. Gregory, radiology, who advised CT abdomen and pelvis scan shows 2 short-segment that a concentric with wall thickening and partial colonic obstruction as well as the sigmoid volvulus that shows swelling and transition that occurs near the midline of the umbilicus. 1005: NPO status. Another 1 L normal saline hung. ED decision to consult General surgery. Spoke with Dr. Lloyd who kindly agrees to consult on the patient and provide further care. This patient was seen under the supervision of my primary supervising physician. I evaluated care for this patient with attending. Discussed this patient with Dr. Anthony. Differential Diagnosis: Abdominal pain including but not limited to appendicitis, cholecystitis, gastritis and urinary tract infection. - Data Points Laboratory Results: Laboratory Results 01/07/19 08:29 01/07/19 08:29 01/07/19 01/07/19 01/07/19 08:30 08:29 08:29 WBC 9.94 10^3/uL H 10^3/uL (3.80-9.50) RBC 4.81 10^6/uL 10^6/uL (4.18-5.33) Hgb 12.0 g/dL L g/dL (12.6-16.3) Hct 38.5 % % (38.0-47.0) MCV 80.0 fL L fL (81.5-99.8) MCH 24.9 pg L pg (27.9-34.1) MCHC 31.2 g/dL L g/dL (32.4-36.7) RDW 14.9 % % (11.5-15.2) Plt Count 532 10^3/uL H 10^3/uL (150-400) MPV 9.6 fL fL (8.7-11.7) Neut % (Auto) 78.0 % H % (39.3-74.2) Lymph % (Auto) 16.2 % % (15.0-45.0) [place] % (Auto) 3.9 % L % (4.5-13.0) Eos % (Auto) 1.2 % % (0.6-7.6) Baso % (Auto) 0.3 % % (0.3-1.7) Nucleat RBC Rel Count 0.0 % % (0.0-0.2) Absolute Neuts (auto) 7.75 10^3/uL H 10^3/uL (1.70-6.50) Absolute Lymphs (auto) 1.61 10^3/uL 10^3/uL (1.00-3.00) Absolute Monos (auto) 0.39 10^3/uL 10^3/uL (0.30-0.80) Absolute Eos (auto) 0.12 10^3/uL 10^3/uL (0.03-0.40) Absolute Basos (auto) 0.03 10^3/uL 10^3/uL (0.02-0.10) Absolute Nucleated RBC 0.00 10^3/uL 10^3/uL (0-0.01) Immature Gran % 0.4 % % (0.0-1.1) Immature Gran # 0.04 10^3/uL 10^3/uL (0.00-0.10) Sodium 140 mEq/L mEq/L (135-145) Potassium 3.9 mEq/L mEq/L (3.5-5.2) Chloride 109 mEq/L mEq/L (97-110) Carbon Dioxide 23 mEq/l mEq/l (22-31) Anion Gap 8 mEq/L mEq/L (6-14) BUN 10 mg/dL mg/dL (7-23) Creatinine 0.7 mg/dL mg/dL (0.6-1.0) Estimated GFR > 60 Glucose 70 mg/dL mg/dL (70-100) Calcium 9.9 mg/dL mg/dL (8.5-10.4) Total Bilirubin 0.5 mg/dL mg/dL (0.1-1.4) Conjugated Bilirubin 0.4 mg/dL mg/dL (0.0-0.5) Unconjugated Bilirubin 0.1 mg/dL mg/dL (0.0-1.1) AST 38 IU/L IU/L (14-46) ALT 31 IU/L IU/L (9-52) Alkaline Phosphatase 57 IU/L IU/L (38-126) Total Protein 7.9 g/dL g/dL (6.3-8.2) Albumin 4.4 g/dL g/dL (3.5-5.0) Lipase 206 IU/L IU/L (23-300) Beta HCG, Qual NEGATIVE Medications Given: Discontinued Medications Hydromorphone HCl (Dilaudid) 1 mg IVP EDNOW ONE Stop: 01/07/19 10:05 Last Admin: 01/07/19 10:11 Dose: 1 mg Sodium Chloride (Ns) 1,000 mls @ 0 mls/hr IV EDNOW ONE; Wide Open PRN Reason: Protocol Stop: 01/07/19 08:34 Last Admin: 01/07/19 08:44 Dose: 1,000 mls Sodium Chloride (Ns) 1,000 mls @ 0 mls/hr IV EDNOW ONE; Wide Open PRN Reason: Protocol Stop: 01/07/19 10:01 Last Admin: 01/07/19 10:16 Dose: 1,000 mls Ketorolac Tromethamine (Toradol) 30 mg IVP EDNOW ONE Stop: 01/07/19 09:16 Last Admin: 01/07/19 09:53 Dose: 30 mg Ondansetron HCl (Zofran) 4 mg IVP EDNOW ONE Stop: 01/07/19 08:34 Last Admin: 01/07/19 08:43 Dose: 4 mg Pantoprazole Sodium (Protonix) 40 mg IVP EDNOW ONE Stop: 01/07/19 08:53 Last Admin: 01/07/19 09:08 Dose: 40 mg Departure - Departure Disposition: [facility] Acute Clinical Impression: Volvulus of sigmoid colon Partial bowel obstruction Qualifiers: Intestinal obstruction type: other intestinal obstruction Qualified Code(s): K56.690 - Other partial intestinal obstruction Condition: Fair
[2019-01-07] MEDS ORDERED: PANTOPRAZOLE SODIUM 40 MG VIAL IVP ONE (08:52)
[2019-01-07] MEDS ORDERED: KETOROLAC 30 MG/1 ML SDV IVP ONE (09:15)
[2019-01-07] MEDS ORDERED: IOHEXOL 300 mgI/ML (OMNIPAQUE) 150 ML BTL IV ONE (09:21)
[2019-01-07] MEDS ORDERED: HYDROmorphONE/DILAUDID 2 MG/ML INJ IVP ONE ×2 (10:04→12:26)
[2019-01-07] MEDS ORDERED: HYDROmorphONE/DILAUDID 2 MG/ML INJ ONE (12:23)
[2019-01-07] MEDS ORDERED: ONDANSETRON 4 MG/2 ML VIAL IVP PRN (15:56)
[2019-01-07] MEDS ORDERED: HYDROmorphONE/DILAUDID 1 MG/ML INJ IVP PRN (15:56)
[2019-01-07] MEDS ORDERED: NS 1,000 ML IV SCH (16:00)
[2019-01-07] MEDS: PROMETHAZINE HCL 25 MG/ML INJ IVP PRN (17:36)
[2019-01-07] MEDS: HYDROmorphONE/DILAUDID 1 MG/ML INJ IVP PRN (17:36)
--- NOTE | 2019-01-07 20:19 | SOAPPROG ---
SOAP Progress Note Assessment/Plan: Assessment:Plan: see full dictated consult to follow 23 y/o female with hx constipation and abdo pain who present with acute onset pain with no f/c/s CT with possible volvulus - Gastrografin enema didn't show that but has dilated prox loops she has decreased BS and is mildly tender I am hesitant to do prep tonight but she does need at least flex-sig to evaluate that area Flex-sig/limited colon in am with enema prep only Josemanuel Man MD [phone] 01/07/19 20:16 Objective: Vital Signs Temp Pulse Resp BP Pulse Ox 36.9 C 74 16 133/83 H 98 01/07/19 20:00 01/07/19 20:00 01/07/19 20:00 01/07/19 20:00 01/07/19 20:00 01/06/19 01/07/19 01/08/19 05:59 05:59 05:59 Intake Total 2217 Output Total 725 Balance 1492 ICD10 Worksheet Patient Problems: Problems Problem Status Onset Partial bowel obstruction Acute Volvulus of sigmoid colon Acute Epigastric abdominal pain Acute Pneumonia Acute
--- NOTE | 2019-01-07 21:55 | SOAPPROG ---
RADHA Progress Note Assessment/Plan: Assessment: 23-YEAR-OLD FEMALE WITH A RECURRENT ABDOMINAL PAIN BUT PARTICULARLY WORSE TODAY. ADMIT FOR EVALUATION. CT SCAN SUGGESTED A SIGMOID VOLVULUS HOWEVER BARIUM ENEMA DID NOT SHOW A SIGMOID VOLVULUS OR ANY INFLAMMATORY BOWEL DISEASE WILL OBTAIN A GI CONSULT FOR COLONOSCOPY FOR EVALUATION TO RULE OUT THE COLITIS. RISKS AND OPTIONS BEEN FULLY DISCUSSED CHEST CLEAR/COR REGULAR RHYTHM/ABDOMEN SOFT MILDLY TENDER BUT NOT DISTENDED WITH POSITIVE BOWEL SOUNDS AND NO HERNIAS/EXTREMITIES BENIGN Plan: PLAN IS GI CONSULT AND COLONOSCOPY SHE WILL PROBABLY NEED A SIGMOID RESECTION BECAUSE OF THE REDUNDANCY OF HER SIGMOID AND RECURRENT SYMPTOMS 01/07/19 21:53 Objective: Vital Signs Temp Pulse Resp BP Pulse Ox 36.9 C 74 16 133/83 H 98 01/07/19 20:00 01/07/19 20:00 01/07/19 20:00 01/07/19 20:00 01/07/19 20:00 01/06/19 01/07/19 01/08/19 05:59 05:59 05:59 Intake Total 2217 Output Total 725 Balance 1492 ICD10 Worksheet Patient Problems: Problems Problem Status Onset Partial bowel obstruction Acute Volvulus of sigmoid colon Acute Epigastric abdominal pain Acute Pneumonia Acute
--- NOTE | 2019-01-08 08:11 | GCON ---
[f rep st] CONSULTATION DATE OF CONSULTATION: 01/07/2019 REFERRING PHYSICIAN: Dr. Lloyd INDICATION FOR CONSULTATION: Abnormal imaging studies. HISTORY OF PRESENT ILLNESS: I have been asked by Dr. Lloyd to see this patient in consultation for chief complaint of abnormal CT scan, which suggested possible volvulus versus inflammatory bowel disease, and a subsequent Gastrografin enema that did not reveal any volvulus, but some dilated bowel. The patient is a pleasant 23-year-old female who presents with 1 day of abdominal pain starting in the morning. She presented with nausea, vomiting, but did not describe any fevers, chills, or sweats. She says she has a history of gastroparesis, more likely it is just gastritis. She did have an episode with pneumonia recently for which she was hospitalized between the and here. She had a CT scan which showed a possible volvulus or possible inflammatory bowel disease and a subsequent Gastrografin enema which did not reveal a volvulus. She states that she had a lot of pain with the Gastrografin enema, so the question is could it have untorsed a volvulus and not noted at that point. She is now feeling reasonably well but slightly increased abdominal discomfort and mild nausea. There is no family history of inflammatory bowel disease. She is homeless. She has had problems with constipation in the past and passing some mucus at times, but she has never had any significant diarrhea. She is now admitted with the above, and I am called to help evaluate and treat in that regard. PAST MEDICAL HISTORY: Asthma, pneumonia, gastroparesis, but I think it is really just more gastritis. PAST SURGICAL HISTORY: None. SOCIAL HISTORY: She smokes cigarettes every day. She is homeless. She does not drink a significant amount of alcohol. She is here with her boyfriend and they have been together for a few years. FAMILY HISTORY: no colon caner nor IBD to her knowledge MEDICATIONS: In hospital include Dilaudid p.r.n., Zofran p.r.n., Phenergan p.r.n. Home meds are just albuterol. ALLERGIES: No known drug allergies. REVIEW OF SYSTEMS: A complete review of systems was performed and is negative other than noted in the HPI. PHYSICAL EXAM: GENERAL: Well-developed, well-nourished young female in no acute distress, sitting in her bed with her boyfriend present. VITAL SIGNS: Blood pressure 133/88, pulse is 74, respirations 16, 98% on room air, temperature 36.9. EYES: Anicteric. FOTRINO, EOMI. MOUTH: No lesions. Moist membranes. NECK: Supple. Full range of motion. No JVD. BACK: No spine tenderness. No CVA tenderness. LUNGS: Clear to auscultation. CARDIAC: S1, S2. Regular rate and rhythm. ABDOMEN: Bowel sounds are decreased in frequency. Abdomen is soft with mild diffuse tenderness. No rebound. No guarding. No hepatosplenomegaly. EXTREMITIES: No cyanosis, clubbing, or edema. NEUROLOGIC: Cranial nerves intact. Nonfocal. SKIN: No stigmata of advanced liver disease. LABORATORY DATA: From the , WBC 9.94, hemoglobin 12.0, hematocrit 38.5, platelet count 532. Sodium 140, potassium 3.9, chloride 109, bicarb 23, BUN 10 , creatinine 0.7, glucose 70, calcium 9.9, bilirubin 0.5, AST 38, ALT 31, alkaline phosphatase 57, total protein 7.9, albumin 4.4, lipase 206. Beta HCG is negative. TSH from the 29 of December is 1.71. Abdominal CT scan from January 07, 2019, query sigmoid volvulus evidenced by twisting of the sigmoid colon and position of the sigmoid colon in the right lower quadrant. Query Crohn disease of the low sigmoid colon with 2 discontinuous segments of active inflammation and shows a colonic stenosis. Partial low colonic obstruction due to a combination of suspected volvulus and these 2 areas of narrow segments of what appears to be some active colitis. The abdominal CT scan was at 8:51 in the morning. The barium enema was at 2:02 in the afternoon. The barium enema shows a mild distention of the right colon. No visible correlation of the distal inflammation or wall thickening or apparent narrowing on the CT scan, and no evidence of sigmoid volvulus. As noted above in the HPI, she did have significant discomfort with the initial insertion of Gastrografin, which may have untorsed a volvulus. ASSESSMENT: 1. Abnormal imaging studies. 2. Abdominal pain. 3. Abnormal bowel sounds. 4. History of asthma. 5. Recent pneumonia. 6. Query gastroparesis, more likely just a gastritis. RECOMMENDATIONS: I am concerned about prepping her with the above findings and her mild discomfort and poor bowel sounds at present. I think performing flexible sigmoidoscopy in the morning to evaluate the distal sigmoid colon is appropriate to make sure there is no evidence of volvulus or inflammatory bowel disease. I suspect there is no inflammatory bowel disease as she has had a history of constipation and no diarrhea, although her mucus may be related to that, I think it is unlikely. A volvulus is certainly a consideration given the rapid onset of present presentation, the lack of symptoms prior to that, and the CT finding. I have reviewed the x-ray studies with the radiologist and I have discussed the case with Dr. Lloyd. Thank you for allowing me to participate in this patient's healthcare. Do not hesitate to call me if any questions. /[id number]/MODL MTDD
[2019-01-08] MEDS: HYDROmorphONE/DILAUDID 1 MG/ML INJ IVP PRN (09:10)
[2019-01-08] MEDS ORDERED: LR 1,000 ML IV ONE (09:57)
[2019-01-08] MEDS ORDERED: MIDAZOLAM 2 MG/2 ML VIAL ONE ×2 (10:23→11:11)
[2019-01-08] MEDS ORDERED: fentaNYL 100 MCG/2 ML INJ ONE (10:24)
--- NOTE | 2019-01-08 10:52 | PDPROPOC ---
Sedation Plan of Care Sedation Plan of Care: vital signs stable, mental status noted, patient educated of risks, benefits, alternatives, patient can tolerate sedation ASA Classification: ASA 2 Planned drugs: fentanyl, midazolam Mallampati Score: Class 2 Mallampati Reference Image: Patient passed 3-3-2 rule?: Yes
--- NOTE | 2019-01-08 11:10 | SOAPPROG ---
RADHA Progress Note Assessment/Plan: Assessment: 23-YEAR-OLD FEMALE WITH A RECURRENT ABDOMINAL PAIN BUT PARTICULARLY WORSE TODAY. ADMIT FOR EVALUATION. CT SCAN SUGGESTED A SIGMOID VOLVULUS HOWEVER BARIUM ENEMA DID NOT SHOW A SIGMOID VOLVULUS OR ANY INFLAMMATORY BOWEL DISEASE WILL OBTAIN A GI CONSULT FOR COLONOSCOPY FOR EVALUATION TO RULE OUT THE COLITIS. RISKS AND OPTIONS BEEN FULLY DISCUSSED CHEST CLEAR/COR REGULAR RHYTHM/ABDOMEN SOFT MILDLY TENDER BUT NOT DISTENDED WITH POSITIVE BOWEL SOUNDS AND NO HERNIAS/EXTREMITIES BENIGN Plan: PLAN IS GI CONSULT AND COLONOSCOPY SHE WILL PROBABLY NEED A SIGMOID RESECTION BECAUSE OF THE REDUNDANCY OF HER SIGMOID AND RECURRENT SYMPTOMS 01/07/19 21:53 01/08/19 11:09 doing ok/ afebrile/ await flex sig results Objective: Vital Signs Temp Pulse Resp BP Pulse Ox 36.8 C 71 16 124/91 H 98 01/08/19 08:42 01/08/19 08:42 01/08/19 08:42 01/08/19 08:42 01/08/19 08:42 01/07/19 01/08/19 01/09/19 05:59 05:59 05:59 Intake Total 2217 Output Total 725 Balance 1492 ICD10 Worksheet Patient Problems: Problems Problem Status Onset Partial bowel obstruction Acute Volvulus of sigmoid colon Acute Epigastric abdominal pain Acute Pneumonia Acute
[2019-01-08] MEDS ORDERED: fentaNYL 100 MCG/2 ML INJ IVP ONE (11:12)
[2019-01-08] MEDS ORDERED: MIDAZOLAM 2 MG/2 ML VIAL IVP ONE (11:12)
--- NOTE | 2019-01-08 11:40 | GIREPORT ---
[facility] - Endoscopy Department Patient Name: Eusebio Huntley Procedure Date: 01/08/2019 10:20 AM Patient Type: Inpatient Attending MD/ ER Physician: Josemanuel Man MD Procedure: Flexible Sigmoidoscopy Indications: Abnormal CT of the GI tract Providers: Josemanuel Man MD Referring MD: Dayday Lloyd Medicines: Fentanyl 100 micrograms IV, Midazolam 10 mg IV Complications: No immediate complications. Estimated blood loss: None. Description of Procedure: After obtaining informed consent, the endoscope was passed under direct vision. Throughout the procedure, the patient's blood pressure, pulse, and oxygen saturations were monitored continuously. The Colonoscope with irrigation channel was introduced through the anus and advanced to the left transverse colon. The flexible sigmoidoscopy was accomplished without difficulty. The patient tolerated the procedure well. The quality of th e bowel preparation was adequate. Findings: The digital rectal exam was normal. The rectum, sigmoid colon, descending colon, mid transverse colon and d istal transverse colon appeared normal. Estimated Blood Loss: Estimated blood loss: none. Post Op Diagnosis: - The rectum, sigmoid colon, descending colon, mid transverse colon and distal transverse colon are normal. - I do not see any colitis and no volvulus - the CT does look like a volvulus. I wonder if the gastrografin enema un-torsed the volvulus? - No specimens collected. Recommendation: - [facility] care. - Full liquid diet. - Thank you for allowing me to help in your patient's care. Do not hesi cao to call with any questions. Attending Participation: I personally performed the entire procedure. Donovan Urias M.D Josemanuel Man MD 01/08/2019 11:39:38 AM This report has been signed electronicallyMatthew MD Donovan Number of Addenda: 0 Note Initiated On: 01/08/2019 10:20 AM Total Procedure Duration Time 0 hours 9 minutes 51 seconds [email or web address]
--- NOTE | 2019-01-08 12:35 | PDMN ---
Medical Necessity Medical necessity: MCG M05 abd pain und Y F with abd pain, N/V/ CT shows poss volvulus, pt with decreased bowel sounds, tender, pt is homeless- anticipate > 2 MN ongoing med nec care- further monitoring, eval and tx of abd pain- IVF, IV pain, IV antiemetics,
--- NOTE | 2019-01-08 15:56 | ASMTCMCOM ---
CM Note CM Note Notes: Pt is a 23 year old female presents with sigmoid volvulus, and partial colonic obstruction. No therapies ordered at this time. Pt likely to be discharged independently. CM available if needs may arise. Plan: Independent Date Signed: 01/08/2019 03:55 PM Electronically Signed By:CONSTANZA Jade
[2019-01-09] MEDS: HYDROmorphONE/DILAUDID 1 MG/ML INJ IVP PRN ×3 (04:03→11:02)
[2019-01-09] MEDS: PROMETHAZINE HCL 25 MG/ML INJ IVP PRN ×2 (04:28→11:26)
[2019-01-09] MEDS ORDERED: HYDROmorphONE/DILAUDID 1 MG/ML INJ IVP ONE (05:00)
--- NOTE | 2019-01-09 13:23 | SOAPPROG ---
SOAP Progress Note Assessment/Plan: Assessment: 23yo F c redundant sigmoid colon c abd pain - was doing well, tried to eat a smoothie and pain got worse. - KUB reviewed, gas in both small bowle and colon, nothing pathologic - pain is likely 2/2 air distention in colon. Will back diet back down to CLD and cont to monitor. Her abdomen is very soft and nondistended and very reassuring at this time Plan: 01/09/19 13:22 Subjective: more crampy pain today Objective: Vital Signs Temp Pulse Resp BP Pulse Ox 36.9 C 76 16 133/94 H 96 01/09/19 12:00 01/09/19 12:00 01/09/19 12:00 01/09/19 12:00 01/09/19 12:00 01/08/19 01/09/19 01/10/19 05:59 05:59 05:59 Intake Total 2217 2156 Output Total 725 Balance 1492 2156 ICD10 Worksheet Patient Problems: Problems Problem Status Onset Partial bowel obstruction Acute Volvulus of sigmoid colon Acute Epigastric abdominal pain Acute Pneumonia Acute
--- NOTE | 2019-01-09 17:25 | ASMTCMCOM ---
CM Note CM Note Notes: Spoke with pt and boyfriend in the room. Pt is a 23 year old female presents with sigmoid volvulus, and partial colonic obstruction in setting of untreated bipolar (per patient). Pt is homeless and they have been sleeping in warming shelters because pt does not want to be from boyfriend in homeless shelters due to anxiety. Surgery is calling for outpatient sigmoidectomy at a later date and pt is having anxiety/panic about being discharged with ongoing chronic abd pain while homeless. Pt anticipates having housing by Jan 29 as boyfriend is starting new job next week and will have funds for deposit. Pt fearful she cannot wait until Jan 29 for surgery given ongoing pain. Pt given info on [facility] for housing and case management support and [facility] for treatment of anxiety. Pt asserts she will not sleep in the detention alone. Pt and boyfriend deny drug and alcohol abuse. CM to follow. D/C Plan: Independent to warming shelters with support from [facility] and [facility] Date Signed: 01/09/2019 05:25 PM Electronically Signed By:Isa Dutton
[2019-01-09] MEDS ORDERED: oxyCODONE IR 5 MG TAB PO PRN (19:29)
[2019-01-10 08:43] VITALS: BP 127/81
--- NOTE | 2019-01-10 09:28 | PDDCSUM ---
Discharge Summary Discharge Summary: DISCHARGE SUMMARY Date of Admission January 07 Date of Discharge January 10 DISCHARGE DIAGNOSES -abdominal pain HOSPITAL COURSE The patient was admitted from the ED with a questionable sigmoid volvulus. She subsequently had a barium enema which confirmed that there was no volvulus. In addition, she also had a colonoscopy which was normal. Her pain subsequently resolved, she was tolerating a regular diet and was subsequently discharged in stable condition on the afternoon of the 10th DISCHARGE MEDICATIONS None DISPOSITION Home FOLLOW UP Follow up with Dr. Lloyd office in 10-14 days for a general post-operative visit Total DC 20 minutes
--- NOTE | 2019-01-10 14:14 | ASDISCHSUM ---
Discharge Information Plan Status:Home with No Needs Medically Cleared to Leave:01/09/2019 Discharge Date:01/10/2019 11:40 AM CM D/C Disposition:Home, Routine, Self-Care ADT D/C Disposition:Home, Routine, Self-Care Projected Discharge Date:01/10/2019 12:00 AM Transportation at D/C:Friend Discharge Delay Reason: Follow-Up Date:01/10/2019 12:00 AM Discharge Slot:1 - 8:01 am - 12:00 noon Final Diagnosis:Abdominal Pain Placement Information Patient Contact Information Contact Name:ASHANTI Relationship:Other Address: Home Phone: City: [facility] Phone: [facility] Code: Email: Financial Information Financial Class:HMO and PPO Plans Primary Plan Desc: OUT OF [facility] Primary Plan Number:[id number] Secondary Plan Desc: Secondary Plan Number: Assessment Information [facility] CM Progress Note CM Note CM Note Notes: Pt is a 23 year old female presents with sigmoid volvulus, and partial colonic obstruction. No therapies ordered at this time. Pt likely to be discharged independently. CM available if needs may arise. Plan: Independent Date Signed: 01/08/2019 03:55 PM Electronically Signed By:CONSTANZA Jade [facility] CM Progress Note CM Note CM Note Notes: Spoke with pt and boyfriend in the room. Pt is a 23 year old female presents with sigmoid volvulus, and partial colonic obstruction in setting of untreated bipolar (per patient). Pt is homeless and they have been sleeping in [facility] shelters because pt does not want to be from boyfriend in homeless shelters due to anxiety. Surgery is calling for outpatient sigmoidectomy at a later date and pt is having anxiety/panic about being discharged with ongoing chronic abd pain while homeless. Pt anticipates having housing by Jan 29 as boyfriend is starting new job next week and will have funds for deposit. Pt fearful she cannot wait until Jan 29 for surgery given ongoing pain. Pt given info on [facility] for housing and case management support and [facility] for treatment of anxiety. Pt asserts she will not sleep in the detention alone. Pt and boyfriend deny drug and alcohol abuse. CM to follow. D/C Plan: Independent to [facility] with support from [facility] and [facility] Date Signed: 01/09/2019 05:25 PM Electronically Signed By:Isa Duttno Case Management Discharge Plan Note Case Management Discharge Discharge Order Complete? Answers: Yes Patient to Obtain Answers: Independently Medications Transportation Arranged Answers: Family/Friends Discharge Comments Notes: CM met with patient prior to discharge. Patient [facility]. She states she plans on following up with Dr. Gabino villalba to address possible surgery. CM gave contact info to [facility], she states she can call tomorrow to schedule and appointment. The patient will be applying for [place] Medicaid soon, CM shared info about [facility] and [facility]. CM available to support if any additional CM needs arise. Date Signed: 01/10/2019 02:14 PM Electronically Signed By:Gina Smalls Intervention Information
== END 2019-01-10 11:40 | disposition home or self-care (01) | DRG 392 ==
LOC: F3E 13:30
PROVIDERS: ADMIT Surgery; ATTEND Surgery
PROC: 0DJD8ZZ Inspection of Lower Intestinal Tract, Via Natural or Artificial Opening Endoscopic (ICD-10-PCS; principal; 2019-01-08 10:15)
DX: R10.31 Right lower quadrant pain (principal); R10.13 Epigastric pain; E86.9 Volume depletion, unspecified; Z72.0 Tobacco use; J45.909 Unspecified asthma, uncomplicated; Z59.0 Homelessness
CPT/HCPCS: 96374; J1170; J1885; J2250; J2405; J2550; J3010; Q9967

== ENCOUNTER 2019-04-11 01:50 | Emergency (ER) | payer MEDICAID ==
[2019-04-11] MEDS ORDERED: ACETAMINOPHEN 500 MG TAB PO ONE (02:15)
[2019-04-11] MEDS ORDERED: IBUPROFEN 200 MG TAB PO ONE (02:15)
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
[2019-04-11 03:17] VITALS: BP 111/65
== END 2019-04-11 03:17 | disposition home or self-care (01) ==
LOC: EDUNIT# → EDBD
DX: S06.9X9A Unspecified intracranial injury with loss of consciousness of unspecified duration, initial encounter (principal); S86.911A Strain of unspecified muscle(s) and tendon(s) at lower leg level, right leg, initial encounter; F17.200 Nicotine dependence, unspecified, uncomplicated; Y04.8XXA Assault by other bodily force, initial encounter